=== PATIENT | male | born 1930 | race Caucasian/White ===

== ENCOUNTER 2017-12-11 17:44 | Inpatient (IN) | payer MEDICARE, BC ==
[2017-12-11 18:36] LABS: Bilirubin Negative (Negative); Blood, Urine Negative (Negative); Clarity CLEAR (Clear); Glucose, Urine (Dipstick) Negative (Negative); Leukocyte Negative (Negative); Nitrite Negative (Negative); Protein, Urine (Dipstick) Negative (Neg-Trace); Specific Gravity, Urine 1.014 (1.002-1.036); Urobilinogen 0.2 mg/dL (0.2-1.0); pH, Urine 7.5 (5.0-9.0)
[2017-12-11 18:46] LABS: #Eosinphils 0.1 thou/uL (0.0-0.7); #Lymphocytes 1.3 thou/uL (1.20-3.40); #Monocytes 0.7 thou/uL (0.11-0.59); %Basophils 0.5 % (0.0-1.0); %Eosinophils 0.9 % (0.0-10.0); %Lymphocytes 17.8 % (21.0-51.0); %Monocytes 9.9 % (0.0-10.0); Hemoglobin 13.7 g/dL (14.0-18.0); Platelet Count 319 thou/uL (130-400); RBC Distribution Width 12.3 % (11.5-14.5)
[2017-12-11 18:52] LABS: INR-International Normal Ratio 1.1; Prothrombin Time 14.7 SEC (12.0-14.7)
[2017-12-11 18:53] LABS: PTT 26.5 SEC (22.9-36.1)
[2017-12-11 19:09] LABS: ALT (SGPT) 80 U/L (8-55); AST (SGOT) 64 U/L (5-34); Alkaline Phosphatase 135 U/L (40-150); Anion Gap 16 mmol/L (10-20); BUN (Urea Nitrogen) 25 mg/dL (8.4-25.7); Bilirubin, Total 0.8 mg/dL (0.2-1.2); Calc. Creatinine Clearance 0 mL/min (70-130); Calcium 9.4 mg/dL (7.8-10.44); Carbon Dioxide 23 mmol/L (23-31); Chloride 99 mmol/L (98-107); Estimated GFR-MDRD 31; Glucose 98 mg/dL (83-110); Iron 110 ug/dL (65-175); Iron Binding Capacity, Total 288 mcg/dL (261-462); Sodium 133 mmol/L (136-145)
--- NOTE | 2017-12-11 21:07 | CT ---
CT BRAIN WITHOUT CONTRAST 12/11/17 HISTORY: Progressive weakness. COMPARISON: CT brain 06/20/15. FINDINGS: Moderate microvascular ischemic changes, chronic. Ex vacuo dilatation of the ventricular system due t o atrophy. No acute territorial infarct or hemorrhage. No midline shift or mass effect. The calvarium is intact. The paranasal sinuses and mastoids are relatively clear. IMPRESSION: No acute intracranial abnormality. POS: [facility]
[2017-12-11] MEDS ORDERED: Ondansetron HCl/PF 4 MG/2 ML Vial IVP PRN (23:34)
[2017-12-11] MEDS ORDERED: Acetaminophen 325 MG TAB PO PRN (23:34)
[2017-12-11] MEDS ORDERED: Ondansetron ODT 4 MG TAB SL PRN (23:34)
[2017-12-12] MEDS: Sodium Chloride 0.9% 1,000 ML IV SCH ×2 (00:30→13:29)
[2017-12-12] MEDS ORDERED: Meclizine HCl 25 MG TAB PO PRN (10:26)
[2017-12-12] MEDS ORDERED: Ipratropium Bromide 0.03% Nasal Inhaler 30 ml Bottle EA NARE PRN (10:26)
[2017-12-12] MEDS ORDERED: Cyanocobalamin 1000 MCG/ML VIAL SC SCH (10:30)
--- NOTE | 2017-12-12 12:16 | ULT ---
BILATERAL RENAL ULTRASOUND: Date: 12/12/17 COMPARISON: None. HISTORY: 87-year-old male with renal failure. TECHNIQUE: Multiplanar, multisequence MR imaging of the kidneys and urinary bladder obtained. FINDINGS: Right kidney measures 10.1 x 4.8 x 4.2 cm. Left kidney measures 10.7 x 6.5 x 4.9 cm. No renal mass, h ydronephrosis, or renal stone noted. Urinary bladder volume is 467 mL. Images of the urinary bladder appear grossly unremarkable. IMPRESSION: Unremarkable renal ultrasound. POS: [facility]
--- NOTE | 2017-12-12 13:34 | HP ---
DATE OF ADMISSION: 12/12/2017 PRIMARY CARE PHYSICIAN: Dr. Jc Alvarez. CHIEF COMPLAINT: Weakness, falling, syncopal episodes. HISTORY OF PRESENT ILLNESS: This is an 87-year-old gentleman, a patient of Dr. Jc Alvarez, with a long history of coronary artery disease, status post WA, status post coronary bypass graft, history of esophageal CA, recent diagnosis of lip cancer, who presented to the emergency department last nigh t with worsening weakness and increasing falls at home. The patient states that he has had on and of f episodes of dizziness, which were more positional whenever he sit up, they would get better with ly ing down. Over the past 3-4 days, he has had more falls at home and he had a fall last night. Denie s head trauma. Denies loss of consciousness, but has sudden episodes of feeling off balance and feel ing like he was falling. They can last minutes, sometimes almost an hour. He denies nausea. Denies headache. At that time, he denies any recent fevers or chills or recent illness. He has had a lip biopsy done and had subsequent cellulitis several weeks ago but that resolved. He had seen Dr. Shay armstrong and Dr. Siegel for that. He had an evaluation in the emergency department last night with a normal workup, normal CT of the brain, normal labs, normal urinalysis. He has not been able to function at home. He does not have the assistance at home with his being off balance and falling at home and wai mcdaniels does not think he is safe to be at home either. He is now being admitted for further evaluation and treatment of the above complaints. 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 MEDICATIONS: Include amiodarone 200 mg daily, levothyroxine 100 mcg daily, potassium 99 mg daily, ma gnesium 250 mg daily, gabapentin 300 mg b.i.d., atorvastatin 20 mg daily, tamsulosin 0.4 mg daily, as pirin 81 mg daily, Plavix 75 mg daily, vitamin B12 every 5 weeks, ipratropium nasal spray as needed. ALLERGIES: PARAFON FORTE, which causes a rash. PAST SURGICAL HISTORY: Appendectomy, cataract removal, pacemaker placement, tonsillectomy, umbilical hernia, shave biopsy of his lip in 04/2017, carotid stent placement in 09/2017, coronary artery bypa ss graft in 02/1977. FAMILY HISTORY: Father with heart disease. Mother with heart attack. Siblings wi th dialysis and diabetes. SOCIAL HISTORY: He is . No smoking. He quit 40 years ago daily wine intake. He is retired from [employer]. Coffee every morning. REVIEW OF SYSTEMS: As per the history of present illness. He does admit to episodes of cellulitis a fter shave biopsy of his lip that has resolved completely. HEENT: No visual or hearing changes. No recent congestion. CARDIAC: No chest pain, shortness of breath or palpitations. PULMONARY: Denies cough or hemoptysis. GASTROINTESTINAL: Denies nausea, vomiting, abdominal pain, melena, or hematochezia. GENITOURINARY: History of BPH, but denies dysuria or hematuria. NEUROLOGIC: Positive numbness in his feet. Positive weakness. Positive syncope. Denies headache. Denies blurred vision. PHYSICAL EXAMINATION: VITAL SIGNS: Temperature 97.5, pulse is 74 and regular, respirations 16 and unlabored, blood pressur e 132/64, pulse ox is 98% on room air. GENERAL: He is awake and alert, in no acute distress. Speech is clear. Mucosa is moist. NECK: Supple. He has no bruits, but decreased carotids sounds on the right. HEART: Regular rate and rhythm with 2/6 systolic ejection murmur. LUNGS: Clear bilaterally in upper and lower doe. ABDOMEN: Positive bowel sounds, soft, nontender, nondistended. No hepatosplenomegaly. EXTREMITIES: No clubbing, cyanosis or edema. 2+ peripheral pulses bilaterally. NEUROLOGIC: Cranial nerves II-XII are grossly intact. Strength is 5/5 upper and lower extremities. Gait is unsteady. LABORATORY DATA: White blood cell count 7000, hemoglobin and hematocrit 13.7 and 40.2 with macrocyti c indices, platelets of 319. PT and PTT were normal. Sodium 133, potassium 5.0, chloride 99, CO2 23 , BUN and creatinine 25 and 2.04 with a GFR of 31, serum glucose was 98. Iron of 110, total bilirubi n 0.88. AST and ALT are elevated, alkaline phosphatase is normal at 135, albumin of 4.0. Urinalysis was negative. CT brain showed no active disease, but moderate microvascular ischemic changes with d ilation of the ventricular system due to atrophy, no infarct, no hemorrhage. EKG reveals normal sinu s rhythm, no acute ST-T changes. ASSESSMENT: This is an 87-year-old gentleman with known coronary artery disease and known esophageal as well as lip cancer, now with worsening onset of imbalance and syncope. 1. Vertigo. We will start meclizine p.r.n. We will attempt to get an MRI uncertain if we can do an MRI due to his pacemaker placement. Consult Neurology for evaluation and rule out tertiary syphilis with RPR and check sedimentation rate as well. Await Neurology evaluation and possible normal press ure hydrocephalus. He may need a lumbar puncture versus other workup per Neurology. 3. Chronic kidney disease stage 3. We will adjust medications and monitor and possibly likely prere nal component due to his decreased p.o. intake. We will continue IV fluids at this time as well. 4. Transaminitis. We will recheck consider a liver ultrasound if persists, may need to hold his geoffrey rvastatin. 5. Placement. We will consult case management. She is unable to be managed at home at this time, m lydia need placement.
[2017-12-12] MEDS: Amiodarone 200 MG TAB PO SCH (13:59)
[2017-12-12] MEDS ORDERED: Amiodarone 200 MG TAB PO SCH (14:00)
[2017-12-12] MEDS: Atorvastatin Calcium 20 MG TAB PO SCH (21:01)
[2017-12-12] MEDS: Cephalexin 250 MG CAP PO SCH (21:01)
[2017-12-12] MEDS: Gabapentin 300 MG CAP PO SCH (21:01)
[2017-12-12] MEDS: Tamsulosin HCl 0.4 MG CAP PO SCH (21:01)
[2017-12-13 05:09] LABS: #Eosinphils 0.1 thou/uL (0.0-0.7); #Lymphocytes 1.4 thou/uL (1.20-3.40); #Monocytes 0.9 thou/uL (0.11-0.59); #Neutrophils 4.6 thou/uL (1.40-6.50); %Basophils 0.2 % (0.0-1.0); %Eosinophils 1.3 % (0.0-10.0); %Lymphocytes 19.3 % (21.0-51.0); %Monocytes 12.9 % (0.0-10.0); %Neutrophils 66.4 % (42.0-75.0); Mean Corpuscular HGB CONC 33.6 g/dL (32.0-36.0); Mean Corpuscular Hemoglobin 34.4 pg (27.0-31.0); Platelet Count 284 thou/uL (130-400); RBC Distribution Width 12.3 % (11.5-14.5); Red Blood Cell (RBC) Count 3.49 mill/uL (4.70-6.10)
[2017-12-13] MEDS: Levothyroxine Sodium 100 MCG TAB PO SCH (05:10)
[2017-12-13 05:23] LABS: ALT (SGPT) 61 U/L (8-55); AST (SGOT) 46 U/L (5-34); Albumin 3.5 g/dL (3.4-4.8); Alkaline Phosphatase 121 U/L (40-150); Anion Gap 12 mmol/L (10-20); BUN (Urea Nitrogen) 24 mg/dL (8.4-25.7); Bilirubin, Total 0.5 mg/dL (0.2-1.2); Calc. Creatinine Clearance 0 mL/min (70-130); Calcium 8.4 mg/dL (7.8-10.44); Carbon Dioxide 23 mmol/L (23-31); Chloride 102 mmol/L (98-107); Estimated GFR-MDRD 39; Globulin 2.4 g/dL (2.4-3.5); Glucose 90 mg/dL (83-110); Magnesium 2.4 mg/dL (1.6-2.6); Potassium 4.1 mmol/L (3.5-5.1); Protein, Total 5.9 g/dL (5.8-8.1); Sodium 133 mmol/L (136-145)
[2017-12-13 05:35] LABS: Syphilis Antibody Nonreactive (Nonreactive); Syphilis Antibody Index 0.03 S/CO (<1.00 Non-Reactive)
[2017-12-13 05:50] LABS: Folate (Folic Acid) 6.3 ng/mL (7.0-31.4)
[2017-12-13] MEDS ORDERED: Non-Formulary Item 1 EACH (Potassium [Potassium] 99 MG) PO SCH (09:00)
[2017-12-13] MEDS: Amiodarone 200 MG TAB PO SCH (09:07)
[2017-12-13] MEDS: Magnesium Oxide 400 MG TAB PO SCH (09:07)
[2017-12-13] MEDS: Gabapentin 300 MG CAP PO SCH ×2 (09:07→20:05)
[2017-12-13] MEDS: Cephalexin 250 MG CAP PO SCH ×2 (09:07→20:05)
[2017-12-13] MEDS: Clopidogrel Bisulfate 75 MG TAB PO SCH (09:07)
[2017-12-13] MEDS: Potassium Chloride 8 MEQ TAB PO SCH (13:15)
[2017-12-13] MEDS: Atorvastatin Calcium 20 MG TAB PO SCH (20:05)
[2017-12-13] MEDS: Tamsulosin HCl 0.4 MG CAP PO SCH (20:05)
[2017-12-14] MEDS: Levothyroxine Sodium 100 MCG TAB PO SCH (05:39)
--- NOTE | 2017-12-14 08:38 | PRG ---
DATE OF SERVICE: 12/14/2017 SUBJECTIVE: Mr. Saunders is still in bed, not moving much. He is complaining of some left foot pain. Otherwise, no other medical complaints. He has been evaluated by rehabilitation. He still feels wea k and tired. PHYSICAL EXAMINATION: VITAL SIGNS: Temperature 98.0, blood pressure 162/64. LUNGS: Clear. HEART: Reveals no murmurs, regular rate and rhythm. ABDOMEN: Soft. Bowel sounds are present. The left foot is palpable. There is no evidence of any m asses or lesions. EXTREMITIES: There is some point tenderness noted about the first metatarsophalangeal joint. There is no evidence of any redness noted. IMPRESSION: Overall health decline with weakness to left foot pain. PLAN: 1. We will check uric acid today as well as left foot x-ray. 2. We are still waiting for rehabilitation input as far whether he will be accepted to rehabilitatio n. 3. I have had an extensive discussion with the patient about future impact of his health decline and with his and family, he has taken this into consideration. He does realize that he feels like he may not be able to fully lives at home. He wishes to have further information regarding further l iving facilities in the future.
[2017-12-14] MEDS: Cephalexin 250 MG CAP PO SCH ×2 (09:41→21:18)
[2017-12-14] MEDS: Gabapentin 300 MG CAP PO SCH ×2 (09:42→21:18)
[2017-12-14] MEDS: Potassium Chloride 8 MEQ TAB PO SCH (09:42)
[2017-12-14] MEDS: Clopidogrel Bisulfate 75 MG TAB PO SCH (09:42)
[2017-12-14] MEDS: Amiodarone 200 MG TAB PO SCH (09:42)
[2017-12-14] MEDS: Magnesium Oxide 400 MG TAB PO SCH (09:42)
--- NOTE | 2017-12-14 10:04 | RAD ---
LEFT FOOT THREE VIEWS: History: Left foot pain. FINDINGS: Lisfranc joint alignment is anatomic. Plantar arch is maintained. Plantar enthesophyte arises from th e inferior aspect of the calcaneus. There is prominent osteophytosis throughout the foot and ankle. M ild hallux valgus and bunion deformity are apparent. Single small erosion involves the medial head of the medial cuneiform. There is calcification in the arterial structures. IMPRESSION: 1. Moderate osteoarthritic changes of the foot for the patient's age. 2. Plantar heel spur. 3. Atherosclerosis. POS: [facility]
[2017-12-14] MEDS: Atorvastatin Calcium 20 MG TAB PO SCH (21:17)
[2017-12-14] MEDS: Tamsulosin HCl 0.4 MG CAP PO SCH (21:18)
[2017-12-15] MEDS ORDERED: Ibuprofen 800 MG TAB PO PRN (01:51)
[2017-12-15] MEDS: Ibuprofen 800 MG TAB PO PRN ×2 (02:02→20:18)
[2017-12-15] MEDS: Levothyroxine Sodium 100 MCG TAB PO SCH (05:36)
[2017-12-15] MEDS: Magnesium Oxide 400 MG TAB PO SCH (08:29)
[2017-12-15] MEDS: Gabapentin 300 MG CAP PO SCH ×2 (08:29→20:14)
[2017-12-15] MEDS: Clopidogrel Bisulfate 75 MG TAB PO SCH (08:30)
[2017-12-15] MEDS: Amiodarone 200 MG TAB PO SCH (08:30)
[2017-12-15] MEDS: Cephalexin 250 MG CAP PO SCH ×2 (08:32→20:14)
[2017-12-15] MEDS: Potassium Chloride 8 MEQ TAB PO SCH (08:32)
[2017-12-15 17:57] VITALS: BMI 28.5
[2017-12-15] MEDS: Atorvastatin Calcium 20 MG TAB PO SCH (20:14)
[2017-12-15] MEDS: Tamsulosin HCl 0.4 MG CAP PO SCH (20:14)
[2017-12-16] MEDS: Levothyroxine Sodium 100 MCG TAB PO SCH (05:38)
--- NOTE | 2017-12-16 07:54 | PRG ---
DATE OF SERVICE: 12/16/2017 SUBJECTIVE: Mr. Saunders is feeling more energetic. He seems to be in better spirits today. He states he is able to walk little bit more with some assistance. OBJECTIVE: VITAL SIGNS: Temperature 98.0, BP 149/65, pulse 72 and regular. LUNGS: Clear. HEART: Reveals no murmur. ABDOMEN: Soft, nontender, bowel sounds are active. IMPRESSION: 1. Generalized weakness. 2. History of atrial fibrillation. 3. History of atherosclerotic coronary artery disease. 4. Deconditioning. PLAN: I am still awaiting hopeful transfer to rehab anytime. Continue current medicines.
[2017-12-16] MEDS: Cephalexin 250 MG CAP PO SCH (08:44)
[2017-12-16] MEDS: Clopidogrel Bisulfate 75 MG TAB PO SCH (08:45)
[2017-12-16] MEDS: Gabapentin 300 MG CAP PO SCH (08:45)
[2017-12-16] MEDS: Amiodarone 200 MG TAB PO SCH (08:45)
[2017-12-16] MEDS: Potassium Chloride 8 MEQ TAB PO SCH (08:45)
[2017-12-16] MEDS: Magnesium Oxide 400 MG TAB PO SCH (08:45)
[2017-12-16 13:52] VITALS: TEMP 98.4
[2017-12-16 16:44] VITALS: BP 164/72
[2017-12-16] MEDS ORDERED: Docusate 100 MG CAP PO SCH (21:00)
== END 2017-12-16 17:45 | DRG 948 ==
LOC: ERS 17:44 → ONC 22:10 → OBSVTOIN 12-12 10:22 → ONC 12-12 10:47
PROVIDERS: ADMIT Family Medicine; ATTEND Family Medicine
DX: R53.1 Weakness (principal); I48.0 Paroxysmal atrial fibrillation; C00.9 Malignant neoplasm of lip, unspecified; R42 Dizziness and giddiness; Z95.1 Presence of aortocoronary bypass graft; E03.9 Hypothyroidism, unspecified; I25.10 Atherosclerotic heart disease of native coronary artery without angina pectoris; Z95.0 Presence of cardiac pacemaker; Z87.891 Personal history of nicotine dependence; I25.2 Old myocardial infarction; Z85.01 Personal history of malignant neoplasm of esophagus; Z79.01 Long term (current) use of anticoagulants; Z79.82 Long term (current) use of aspirin
CPT/HCPCS: 36415; 51701; 70450; 76770; 80053; 81003; 82274; 82607; 82746; 83540; 83550; 83735; 84207; 84550; 85025; 85610; 85652; 85730; 86780; 93005; 93306; A4216; G8978-GP-CM; G8979-GP-CK; G8987-GO-CK; G8988-GO-CI

== ENCOUNTER 2017-12-30 14:46 | Inpatient (IN) | payer MEDICARE, BC ==
[2017-12-30 15:39] LABS: Hemoglobin 15.1 g/dL (14.0-18.0); Mean Corpuscular HGB CONC 32.6 g/dL (32.0-36.0); Mean Corpuscular Hemoglobin 33.9 pg (27.0-31.0); Platelet Count 457 thou/uL (130-400); RBC Distribution Width 12.4 % (11.5-14.5); Red Blood Cell (RBC) Count 4.46 mill/uL (4.70-6.10); White Blood Cell (WBC) Count 34.8 thou/uL (4.8-10.8)
[2017-12-30] MEDS ORDERED: Ondansetron HCl/PF 4 MG/2 ML Vial ONE (15:39)
--- NOTE | 2017-12-30 15:45 | RAD ---
PORTABLE CHEST 1 VIEW: Date: 12/30/17 Time: 1531 hours HISTORY: Sepsis. FINDINGS: Comparison made with exam of 12/27/17. Changes of median sternotomy again seen. Left-sided pacemaker device remains in place. The heart size is normal. No focal areas of consolidation, pneumothoraces, or pleural effusions are seen. IMPRESSION: No radiographic evidence of acute cardiopulmonary process. POS: [facility]
[2017-12-30 15:56] LABS: Band 7 % (5-11); Lymphocytes 3 % (21-51); MDiff Complete? YES; Monocytes 10 % (0-10); Neutrophil 80 % (42-75); PLT Morphology Comment Appears Increased
[2017-12-30 15:59] LABS: ALT (SGPT) 296 U/L (8-55); AST (SGOT) 287 U/L (5-34); Albumin 2.3 g/dL (3.4-4.8); Alkaline Phosphatase 124 U/L (40-150); Anion Gap 19 mmol/L (10-20); BUN (Urea Nitrogen) 40 mg/dL (8.4-25.7); Bilirubin, Total 1.3 mg/dL (0.2-1.2); Calc. Creatinine Clearance 0 mL/min (70-130); Calcium 7.8 mg/dL (7.8-10.44); Carbon Dioxide 15 mmol/L (23-31); Chloride 99 mmol/L (98-107); Estimated GFR-MDRD 14; Globulin 2.4 g/dL (2.4-3.5); Glucose 155 mg/dL (83-110); Potassium 5.5 mmol/L (3.5-5.1); Protein, Total 4.7 g/dL (5.8-8.1); Sodium 127 mmol/L (136-145)
[2017-12-30] MEDS ORDERED: Vancomycin HCl 1.5 GM in Sodium Chloride 0.9% 250 ML 300 ML IVPB ONE (16:15)
[2017-12-30] MEDS ORDERED: Calcium Chloride 1 GM/10 ML Abboject SYRINGE ONE (16:41)
[2017-12-30] MEDS ORDERED: Ondansetron HCl/PF 4 MG/2 ML Vial IVP PRN (18:08)
[2017-12-30] MEDS ORDERED: Ondansetron ODT 4 MG TAB PO PRN (18:08)
[2017-12-30] MEDS ORDERED: VANCOMYCIN IV IVPB PRN (18:24)
[2017-12-30] MEDS ORDERED: Vancomycin HCl 25 MG/ML Oral PO SCH (18:30)
[2017-12-30 19:44] LABS: Lactic Acid 3.6 mmol/L (0.5-2.2)
--- NOTE | 2017-12-30 19:54 | RAD ---
ABDOMEN TWO VIEWS: 12/30/17 HISTORY: 87-year-old male with abdominal distention and concern for bowel obstruction. Supine and left lateral decubitus view of the abdomen demonstrates some gas and fluid in the stomach as well as some gas in the colon. there is the suggestion of some colonic wall thickening involving t he visualized right colon. Small bowel loops demonstrate some gas and there is a suggestion of some p ossible small bowel wall thickening as well. IMPRESSION: Abnormal gas pattern with some potential wall thickening in the cecum and right colon as well as some small bowel loops which suggests some bowel wall thickening as well. Consider followup abdomen and p elvic CT scan with IV and oral contrast for further assessment. No free intraperitoneal air. No evide nce for focal high grade obstruction. POS: [facility]
--- NOTE | 2017-12-30 19:57 | RAD ---
RIGHT FOOT THREE VIEWS: 12/30/17 HISTORY: 87-year-old male with history of lateral heel ulcer with concern for osteomyelitis. There are degenerative changes of the foot. There are some circumscribed periarticular lucencies, par ticularly of the first metatarsophalangeal joint with some adjacent soft tissue subtle calcification changes which certainly is a finding that can be seen in gout. No evidence for acute fracture or disl ocation. No focal bony destructive process of the calcaneus. Achilles and calcaneal plantar enthesoph ytes. IMPRESSION: Evidence for gout, particularly involving the first metatarsophalangeal joint. Degenerative changes. No overt plain film evidence for osteomyelitis. If that is a concern, certainly consider followup MRI study suggested. POS: [facility]
[2017-12-30 20:19] VITALS: BMI 29.6
[2017-12-30] MEDS: Acetaminophen 500 MG TAB PO PRN (20:48)
[2017-12-30] MEDS: Vancomycin HCl 25 MG/ML Oral PO SCH (20:50)
[2017-12-30] MEDS: Piperacillin/Tazobactam 2.25 GM in Sodium Chloride 0.9% 100 ML IVPB SCH (20:52)
[2017-12-30] MEDS: Sodium Chloride 0.9% 1,000 ML IV SCH (20:53)
[2017-12-30] MEDS ORDERED: Atorvastatin Calcium 20 MG TAB PO SCH (21:00)
[2017-12-30 23:40] LABS: Anion Gap 20 mmol/L (10-20); BUN (Urea Nitrogen) 44 mg/dL (8.4-25.7); Calc. Creatinine Clearance 17 mL/min (70-130); Calcium 7.1 mg/dL (7.8-10.44); Carbon Dioxide 12 mmol/L (23-31); Chloride 104 mmol/L (98-107); Estimated GFR-MDRD 15; Glucose 148 mg/dL (83-110); Potassium 5.4 mmol/L (3.5-5.1); Sodium 131 mmol/L (136-145)
[2017-12-30] MEDS ORDERED: Sodium Chloride 0.9% 500 ML IVPB SCH (23:59)
[2017-12-31] MEDS: Vancomycin HCl 25 MG/ML Oral PO SCH ×2 (00:55→06:31)
[2017-12-31] MEDS: Acetaminophen 500 MG TAB PO PRN ×2 (02:50→08:48)
[2017-12-31] MEDS: Sodium Chloride 0.9% 1,000 ML IV SCH ×2 (02:51→08:47)
[2017-12-31] MEDS: Piperacillin/Tazobactam 2.25 GM in Sodium Chloride 0.9% 100 ML IVPB SCH (03:00)
[2017-12-31 03:29] LABS: Hemoglobin 16.9 g/dL (14.0-18.0); Mean Corpuscular HGB CONC 32.5 g/dL (32.0-36.0); Mean Corpuscular Hemoglobin 33.7 pg (27.0-31.0); Mean Platelet Volume 7.1 fL (7.4-10.4); Platelet Count 491 thou/uL (130-400); RBC Distribution Width 12.6 % (11.5-14.5); White Blood Cell (WBC) Count 41.8 thou/uL (4.8-10.8)
[2017-12-31 03:36] LABS: Lactic Acid 3.6 mmol/L (0.5-2.2)
[2017-12-31 03:40] LABS: Band 14 % (5-11); MDiff Complete? YES; Metamyelocyte 1 % (0-0); Monocytes 8 % (0-10); Myelocyte 1 % (0-0); Neutrophil 76 % (42-75)
[2017-12-31 03:42] LABS: ALT (SGPT) 291 U/L (8-55); AST (SGOT) 293 U/L (5-34); Albumin 2.2 g/dL (3.4-4.8); Alkaline Phosphatase 122 U/L (40-150); Anion Gap 19 mmol/L (10-20); BUN (Urea Nitrogen) 47 mg/dL (8.4-25.7); Bilirubin, Total 0.9 mg/dL (0.2-1.2); Calc. Creatinine Clearance 15 mL/min (70-130); Calcium 7.3 mg/dL (7.8-10.44); Carbon Dioxide 10 mmol/L (23-31); Chloride 106 mmol/L (98-107); Estimated GFR-MDRD 13; Globulin 2.4 g/dL (2.4-3.5); Glucose 161 mg/dL (83-110); Potassium 5.4 mmol/L (3.5-5.1); Protein, Total 4.6 g/dL (5.8-8.1); Sodium 130 mmol/L (136-145)
[2017-12-31] MEDS ORDERED: Sodium Chloride 0.9% 1,000 ML IV SCH (04:15)
[2017-12-31 04:45] LABS: INR-International Normal Ratio 1.5; Prothrombin Time 18.1 SEC (12.0-14.7)
[2017-12-31 04:47] LABS: Puncture Site RBR
[2017-12-31 04:48] LABS: Actual Bicarbonate (HCO3a) 11.5 mEq/L (22-26); Base Excess (BEa) -13.8 mEq/L (0 (+/-) 2.5); CO2 Tension 26.2 mmHg (35.0-45.0); Hematocrit-ABG 47.9 % (42.0-52.0); Hemoglobin (Hb) 14.7 g/dL (14.0-18.0); O2 Tension (PaO2) 74.1 mmHg (80.0-100.0); pH, Arterial 7.26 (7.35-7.45)
[2017-12-31] MEDS ORDERED: Levothyroxine Sodium 100 MCG TAB PO SCH (06:00)
--- NOTE | 2017-12-31 06:09 | HP ---
DATE OF ADMISSION: 12/30/2017. PRIMARY CARE PHYSICIAN: Jc Alvarez MD CHIEF COMPLAINT: Sepsis. HISTORY OF PRESENT ILLNESS: The patient was initially seen in the emergency department on 12/12/2017 with some noted dehydration, vertigo, deconditioning. Recently undergone treatment for head and nec k cancer with a prior history of GI cancer. He was transitioned to [facility] where he has been for the last 2 weeks. The patient subsequently developed signs and symptoms of sepsis w ith GI upset and stool changes, found to have C. diff positive on assay, worsening renal function, an d was transitioned to emergency department for sepsis workup and admission. The patient states his a bdomen is somewhat tender if pressed. Bout of emesis x1, nonbilious and nonbloody, much improved his pain profile. He reports feeling better in reverse Trendelenburg position and on 2 liters nasal can nula. He denies any palpitations at this point in time or chest pain. PAST MEDICAL HISTORY: Gastroesophageal reflux disease; diverticulitis; neoplasm of the stomach; hypo thyroidism; iron deficiency anemia; paroxysmal atrial fibrillation; peripheral neuropathy; squamous c ell carcinoma of lip; coronary artery disease, status post CABG, followed by Dr. Borjas; prior urolog ist is Dr. Brady; Dr. Bailey following for degenerative disk disease; hypertension; hyperlipidem ia. PAST SURGICAL HISTORY: The patient has had appendectomy, cataract surgery, pacemaker placement, tons illectomy, umbilical hernia repair, carotid stent placement, coronary artery bypass graft, cardiovers ion at age 83. SOCIAL HISTORY: Former smoker, social drinker, . Prior living at home, currently was transit ioned to [facility]. HOME MEDICATIONS: Primidone 50 mg, Plavix 75 mg, ipratropium bromide 0.03% solution intranasally, vi tamin B12 1 mL IM injection q.4 weeks, tamsulosin 0.4 mg, levothyroxine 88 mcg, amiodarone 200 mg, at orvastatin 20 mg, baby aspirin 81 mg, Klor-Con , magnesium 200 mg 2 tablets q.a.m., gabapentin 3 00 mg b.i.d. ALLERGIES: PARAFON FORTE, rash. PHYSICAL EXAMINATION: VITAL SIGNS: Blood pressure 136/46 in reverse Trendelenburg, pulse of 74, respiratory rate of 18, ox ygen saturation of 100% on 2 liters nasal cannula, temperature of 98.4. GENERAL: The patient is arousable, in no acute distress. HEENT: Head is normocephalic, atraumatic. Extraocular movements are intact. Oral mucosa is dry. NECK: Supple. HEART: Regular rate and rhythm. No murmurs are auscultated. LUNGS: Clear to auscultation bilaterally. ABDOMEN: Protuberant, slightly bloated; however, not hyperresonant. Tender throughout with voluntar y guarding. No rebound or . EXTREMITIES: Lower extremities without edema with compression stockings in place in the right lower extremity. Slight skin breakdown to great big toe and right lateral heel. Wound Care photograph was documented. No exudates or extending erythema from mild skin breakdown. NEUROLOGIC: The patient is alert and oriented x3. No focal deficits. Speech is normal. LABORATORY DATA: White blood cell count 34.8, hemoglobin of 15.1, platelet count of 457, neutrophil percent 80. Cortisol 36, albumin of 2.3, alkaline phosphatase of 124, ALT of 296, AST of 287, total bilirubin of 1.3, lactic acid of 3.4, glucose of 155, creatinine of 4, estimated GFR of 14, CO2 of 15 , chloride of 99, potassium of 5.5, sodium of 127. C. diff toxin positive. DIAGNOSTIC DATA: Chest x-ray without acute cardiopulmonary events. Abdomen x-ray with inflammation of the colon, recommending CT followup, clinical correlation, and no free air currently. Right foot x-ray with signs and symptoms of gout, arthritis, degeneration. No signs of osteomyelitis. ASSESSMENT: Sepsis, Clostridium difficile colitis, paroxysmal atrial fibrillation, coronary artery d isease, acute on chronic renal insufficiency, shock liver. PLAN: Consulting critical care. Admit the patient to IMCU. Consultation of Nephrology. The patien t states he has seen Dr. May on an outpatient basis prior. We will continue IV antibiotics from [facility], broad-spectrum vancomycin and Zosyn. Given confirmed C. diff colitis, we will additionally order vancomycin p.o. Renally dosing medications were appropriate. Decreasing amiodarone by 100 mg. Hydr ating the patient with IV fluids 125 overnight. The patient's last echo from last hospitalization wi th indeterminate ejection fraction secondary to poor study. Continuing the patient's levothyroxine a nd Plavix. Protonix prophylaxis. The patient with a history of GI bleed prior on anticoagulation. We will continue the patient's compression stockings at this point in time. Consider Lovenox Therapy within the next 24 hours if appropriate. Following up blood cultures. The patient chooses to be a DNR. We will follow up serial laboratory work and specialty recommendations. Regarding foot, does n ot appear to be significant source of potential septic infection. Appears to be secondary to C. diff icile colitis. We will defer IV contrast therapy at this point in time secondary to decline in renal function. If the patient's abdomen exam does not improve, we would recommend followup CT. May cons ider repeat KUB if any suspicion for free air developing.
[2017-12-31 07:28] VITALS: BP 98/45; TEMP 96.8
--- NOTE | 2017-12-31 08:35 | PRG ---
DATE OF SERVICE: 12/31/2017 SUBJECTIVE: Mr. Saunders was admitted yesterday with apparent sepsis and C. difficile colitis as well a s acute renal failure. Patient is currently awake. He is complaining of some pain in his hip. PHYSICAL EXAMINATION: VITAL SIGNS: Temperature 98.6, blood pressure 98/45. LUNGS: Reveal bilateral breath sounds. HEART: Reveals no murmurs. ABDOMEN: Reveals some mild tenderness in the right lower quadrant. X-RAY FINDINGS: Chest x-ray showed no acute pulmonary process. LABORATORY DATA: His white blood count this morning is 41,000, hemoglobin 16.9, hematocrit 51.9. IMPRESSION: 1. Probable sepsis. 2. Acute renal failure. PLAN: 1. We will discontinue his current medications. 2. For his pain, we will provide him some very low dose of morphine. 3. He does have Critical Care Medicine as well as Nephrology consult pending.
[2017-12-31] MEDS ORDERED: Magnesium Oxide 400 MG TAB PO SCH (09:00)
[2017-12-31] MEDS ORDERED: Amiodarone 200 MG TAB PO SCH (09:00)
[2017-12-31] MEDS ORDERED: Clopidogrel Bisulfate 75 MG TAB PO SCH (09:00)
[2017-12-31] MEDS ORDERED: Morphine 4 MG/ML Carpuject SLOW IVP PRN (10:37)
--- NOTE | 2017-12-31 11:26 | PQF ---
DATE: 12-31-17 ATTN : DR. MAYELIN FOX Please exercise your independent, professional judgment in responding to the clarification form. Clinical indicators are provided on the bottom of this form for your review Please check appropriate box(s): [ ] Hyponatremia [ ] Insignificant Lab Value [ ] Other diagnosis In addition, please specify: Present on Admission (POA): [ ] Yes [ ] No [ ] Unable to determine For continuity of documentation, please document condition throughout progress notes and discharge summary. Thank You. CLINICAL INDICATORS - SIGNS / SYMPTOMS/ LABS are present in the medical record: Lab Results: SODIUM: 12-30-17: 127, 131 12-31-17: 130 RISK FACTORS: ER DOCUMENTATION: DIARRHEA, DEHYDRATION, DECONDITIONING TREATMENT: SERIES OF LABS (12-30-17) IVF NS (This form is maintained as a part of the permanent medical record) 2014 [employer] All Rights Reserved JORDAN [email or web address] Office: [phone] [facility] CLINICDima
--- NOTE | 2018-01-01 15:06 | EKG ---
Test Reason : Blood Pressure : / mmHG Vent. Rate : 070 BPM Atrial Rate : 070 BPM P-R Int : 114 ms QRS Dur : 120 ms QT Int : 466 ms P-R-T Axes : 000 -12 042 degrees QTc Int : 503 ms Electronic atrial pacemaker RSR' or QR pattern in V1 suggests right ventricular conduction delay Borderline ECG Confirmed by RADHA BORGES, JOSE ALEJANDRO ([id number]), society editor FLAVIA BENEDICT ([id number]) on 01/01/2018 3:06:44 PM Referred By: Confirmed By:JOSE ALEJANDRO GARCIA MD
[2018-01-01] MEDS ORDERED: Vancomycin HCl 1 GM in Premix Bag 1 BAG IVPB SCH (17:00)
--- NOTE | 2018-01-31 22:09 | DIS ---
DATE OF ADMISSION: 12/30/2017 DATE OF : 12/31/2017 DISCHARGE/FINAL DIAGNOSES: 1. Acute renal failure. 2. Probable sepsis. ADMITTING PHYSICIAN: Dr. Jc Alvarez. HOSPITAL SUMMARY: The patient was an 87-year-old male who was admitted on 12/30/2017. He was initia lly seen in the emergency room and found to be dehydrated after being transferred from the [facility]. He was found to have a creatinine of 4 with a white blood count 34,000. It was felt li ke he was septic with acute renal failure. Patient wished to be placed as a DNR. Patient remained h ospitalized overnight in the ICU. I was able to see him on 12/31/2017. The patient was having some lower back pain and white blood count had risen to 41,000. It was evident to me the patient was prob ably suffered from sepsis. He did not wish to have any heroic measures. His daughter was at bedside . I did express to them to me that the patient would be critically ill and most likely could not alfredo vive this hospitalization. Critical Care and Nephrology consult were pending at the time of my note. Less than 2 hours later, I received a call from the nurse requesting some pain medicine. Prior to his pain medicine being give n, the patient was due to his wishes of not having being a DNR, no CPR was done. Patient wa s pronounced at the bedside. CAUSE OF : Probable sepsis with acute renal failure. He was released to his home of [facility]. Family was in attendance.
== END 2017-12-31 14:14 | disposition expired | DRG 871 ==
LOC: EEVIPCON 14:46 → ERS 14:46 → IMCU/EMU 16:35
PROVIDERS: ADMIT Family Medicine; ATTEND Family Medicine
DX: A41.9 Sepsis, unspecified organism (principal); K72.00 Acute and subacute hepatic failure without coma; N17.9 Acute kidney failure, unspecified; L89.151 Pressure ulcer of sacral region, stage 1; A04.72 Enterocolitis due to Clostridium difficile, not specified as recurrent; E86.0 Dehydration; I48.0 Paroxysmal atrial fibrillation; Z95.1 Presence of aortocoronary bypass graft; I25.10 Atherosclerotic heart disease of native coronary artery without angina pectoris; E78.5 Hyperlipidemia, unspecified; R42 Dizziness and giddiness; Z87.891 Personal history of nicotine dependence; R19.7 Diarrhea, unspecified; I12.9 Hypertensive chronic kidney disease with stage 1 through stage 4 chronic kidney disease, or unspecified chronic kidney disease; N18.9 Chronic kidney disease, unspecified; R65.20 Severe sepsis without septic shock; Z85.028 Personal history of other malignant neoplasm of stomach; Z85.01 Personal history of malignant neoplasm of esophagus; Z85.819 Personal history of malignant neoplasm of unspecified site of lip, oral cavity, and pharynx; Z85.89 Personal history of malignant neoplasm of other organs and systems; Z95.0 Presence of cardiac pacemaker
CPT/HCPCS: 36415; 71045; 74019; 80053; 82533; 82805; 83605; 85025; 85610; 87040; 87324; 87449; 93005; 94760; 96360; 96361; 96365; 96375; J2405; J2543; J3370; J7050